=== PATIENT | female | born 1935 ===

== ENCOUNTER → 2018-10-22 | Outpatient (CLI) | payer MEDICARE, OTHER ==
[~2018-10-22] MED LIST: AMLO5 PO; Anastrozole1 GM MC; CYAN1000 PO; MELA3 PO; METO100ER PO; Mobic15 MG PO; OXYC5; RANI150 PO; VITAMIN D32000 UNIT PO
== END | disposition home or self-care (01) ==
LOC: LAB SHORT 07:53 → PLD 07:53
DX: C44.41 Basal cell carcinoma of skin of scalp and neck (principal)
CPT/HCPCS: 88305

== ENCOUNTER → 2018-11-11 | Outpatient (CLI) | payer MEDICARE, OTHER | END | disposition home or self-care (01) | LOC: LAB SHORT 08:40 → PLD 08:40 | DX: C44.41 Basal cell carcinoma of skin of scalp and neck (principal) | CPT/HCPCS: 88305 ==

== ENCOUNTER → 2019-07-01 | Outpatient (CLI) | payer MEDICARE, OTHER | END | disposition home or self-care (01) | LOC: PLD 08:18 → LAB SHORT 08:18 | DX: D48.5 Neoplasm of uncertain behavior of skin (principal) | CPT/HCPCS: 88305 ==

== ENCOUNTER → 2019-07-21 | Outpatient (CLI) | payer MEDICARE, OTHER | END | disposition home or self-care (01) | LOC: PLD 06:55 → LAB SHORT 06:55 | DX: C44.41 Basal cell carcinoma of skin of scalp and neck (principal) | CPT/HCPCS: 88305 ==

== ENCOUNTER → 2020-08-01 | Outpatient (CLI) | payer MEDICARE, OTHER | END | disposition home or self-care (01) | LOC: LAB SHORT 14:23 → LAB 14:23 | DX: L57.0 Actinic keratosis (principal) | CPT/HCPCS: 88305; 88312 ==

== ENCOUNTER → 2022-06-05 | Outpatient (CLI) | payer MEDICARE, OTHER | END | disposition home or self-care (01) | LOC: LAB SHORT 14:42 → LAB 14:42 | DX: L08.0 Pyoderma (principal) | CPT/HCPCS: 87070; 87205 ==

== ENCOUNTER → 2022-08-08 | Outpatient (CLI) | payer MEDICARE, OTHER | END | disposition home or self-care (01) | LOC: PLD 12:52 → LAB SHORT 12:52 | DX: D48.5 Neoplasm of uncertain behavior of skin (principal) | CPT/HCPCS: 88305 ==

== ENCOUNTER 2023-02-10 09:46 | Day surgery (SDC) | payer MEDICARE, OTHER ==
[2023-02-13] MEDS ORDERED: APHEN325 M1 PO (10:59)
[2023-02-13] MEDS ORDERED: EYLEA2 MG/0.02 IO (11:00)
[2023-02-13] MEDS ORDERED: MERIBIN5 MG PO (11:00)
[2023-02-13] MEDS ORDERED: ELIQUIS2.5 MG PO (11:04)
[2023-02-13] MEDS ORDERED: ERGO50000 PO (11:04)
[2023-02-13] MEDS ORDERED: CALCIUM 250-D1 EAC1 PO (11:04)
[2023-02-13] MEDS ORDERED: ARNUITY ELLIP100 MCG INH (11:05)
[2023-02-13] MEDS ORDERED: Flonase 0.05% N16 GM (11:06)
[2023-02-13] MEDS ORDERED: FURO20 PO (11:06)
[2023-02-13] MEDS ORDERED: IRBE150 PO (11:07)
[2023-02-13] MEDS ORDERED: TURMERIC500 M2 PO (11:08)
[2023-02-13] MEDS ORDERED: TIOT18 INH (11:08)
[2023-02-13] MEDS ORDERED: SPIR25 PO (11:08)
[2023-02-13] MEDS ORDERED: Acerola C500 MG PO (11:09)
[2023-02-14] MEDS ORDERED: OMEP20ER PO (09:36)
[2023-02-14] MEDS ORDERED: ARNUITY ELLIP100 MCG IH (09:39)
== END 2023-02-17 22:46 | disposition home or self-care (01) ==
LOC: MOI US 09:46
DX: C50.411 Malignant neoplasm of upper-outer quadrant of right female breast (principal); Z17.1 Estrogen receptor negative status [ER-]
CPT/HCPCS: 19285; 77065; A4648; G0279

== ENCOUNTER 2023-02-27 07:05 | Day surgery (SDC) | payer MEDICARE, OTHER ==
[~2023-02-27] VITALS: Ht 165.1 cm; Wt 65.3 kg
[2023-02-27] VITALS (10 sets, daily range): BP systolic 123–138; BP diastolic 65–85
[~2023-02-27 07:05] MED LIST changes: +APHEN325 M1 PO; +ARNUITY ELLIP100 MCG IH; +ARNUITY ELLIP100 MCG INH; +Acerola C500 MG PO; +CALCIUM 250-D1 EAC1 PO; +ELIQUIS2.5 MG PO; +ERGO50000 PO; +EYLEA2 MG/0.02 IO; +FURO20 PO; +Flonase 0.05% N16 GM; +IRBE150 PO; +MERIBIN5 MG PO; +OMEP20ER PO; +SPIR25 PO; +TIOT18 INH; +TURMERIC500 M2 PO
--- NOTE | 2023-02-27 09:15 | NUR ---
Ambulatory in Day Surgery History, Chart, Medications and Allergies reviewed before start of procedure. Pre-Op teaching done. Pt verbalizes understanding. Patient States Post-Procedure ride home has been arranged.
--- NOTE | 2023-02-27 09:45 | NUR ---
DR KELLY HERE AT BEDSIDE TO TALK WITH PATIENT REGARDING QUESTIONS ON CODE STATUS. PATIENT REQUESTING TO BE A DNR DURING OPERATION. DR KELLY EXPLAINED TO PATIENT AND DAUGHTER THAT IS AT BESIDE OF PATIENT BEING VERY HIGH RISK AND WOULD LIKE TO SUSPENDED HER REQUEST OF CODE STATUS. PATIENT AND DR KELLY AGREED TO GIVE MEDICATIONS DURING SURGERY FOR RESUSCITATION AND NOT DO CHEST COMPRESSIONS. DNR SUSPENSION PAPERWORK SIGNED.
--- NOTE | 2023-02-27 12:57 | NUR ---
PT TO DAY SURGERY FROM PACU. ALERT AND ORIENTED. WOULD LIKE TO USE THE BATHROOM. ABLE TO MOVE SELF IN BED, BUT IS UNSURE ABOUT WALKING. WILL GET BEDSIDE COMMODE. PT IN BLUE BREAST BINDER, RIGHT BREAST HAS GAUZE SECURED AND IS C/D/I.
--- NOTE | 2023-02-27 13:15 | NUR ---
NO CHANGE IN GAUZE ON BREAST
--- NOTE | 2023-02-27 13:30 | NUR ---
PT DAUGHTER SHOWN GAUZE ON BREAST AND HOW TO REMOVED AND PUT BACK ON BREAST
--- NOTE | 2023-02-27 13:30 | NUR ---
PT LEFT LOWER INNER FOREARM BRUISED AND SWOLLEN WHERE ARTERIAL LINE WAS PLACED. SWELLING OUTLINED WITH BODY PEN AND FAMILY EDUCATED ON WATCHING FOR BRUISING AND SWELLING TO EXTEND FROM THE OUTLINE. EDUCATED TO WATCH FOR BLEEDING AND TO KEEP ELEVATED.
--- NOTE | 2023-02-27 13:53 | NUR ---
COBAN REMOVED FROM RIGHT LOWER WRIST AND A 5CM HEMATOMA IS NOTED, AND TRACED. ICE PACK MADE AND PT AND HER DAUGHTER EDUCATED ON HOW TO USE FOR THE NEXT 48 HOURS.
--- NOTE | 2023-02-27 13:58 | NUR ---
SKIN ON BOTH ARMS PREPPED AND TEGADERM PLACED BY CHARGE NURSE OLGA HARPER. DR CALDWELL ON WAY TO SEE PT ARMS.
--- NOTE | 2023-02-27 14:06 | NUR ---
DR OTT CALLED AND UPDATED ON PT 2 AREAS OF BRUISING/SWELLING. DR OTT SAYS FOR PT TO STILL CONTINUE HER ELIQUIS TOMORROW.
--- NOTE | 2023-02-27 14:10 | NUR ---
HENRRY ESPINOZA HOLDING PRESSURE ON RIGHT HEMATOMA FOR 5 MINUTES, PER DR PAULETTE PRIDE. EDUCATED FAMILY ON HOW TO APPLY PRESSURE PRN.
--- NOTE | 2023-02-27 14:17 | NUR ---
DR RAMAN UPDATED ON RIGHT ARM, AFTER 10 MINUTES OF MANUAL PRESSURE BY HENRRY ESPINOZA, HEMATOMA IS FLATTENED. DR CALDWELL NOT COMING IN TO SEE PT. PT CLEARED TO DISCHARGE TO HOME. PT TO DISCHARGE HOME VIA WHEELCHAIR WITH DAUGHTER. DISCHARGE INSTRUCTIONS IN HAND AND PT AND DAUGHTER STATE AN UNDERSTANDING.
--- NOTE | 2023-02-27 18:19 | NUR ---
LATE ENTRY: ARTERIAL LINE RIGHT RADIAL ARTERY PLACED IN OR BY ACP. DC IN PACU @[id number]. SITE AND SKIN CLEANED WITH ALCOHOL BEFORE REMOVAL. STERILE 4X4S USED TO HOLD PRESSURE AND DRESS SITE. PRESSURE MAINTAINED AND SITE COVERED WITH PRESSURE DRESSING AND COBAN. CATH INTACT AND SITE WAS WNL.
== END 2023-02-27 14:20 | disposition home or self-care (01) ==
LOC: NM 07:05 → ORSCMMR 07:06 → NM 07:30
PROVIDERS: Surgery
PROC: 0HBT0ZZ Excision of Right Breast, Open Approach (ICD-10-PCS; principal; 2023-02-27 09:00)
PROC: 07B50ZZ Excision of Right Axillary Lymphatic, Open Approach (ICD-10-PCS; principal; 2023-02-27 09:00)
DX: C50.411 Malignant neoplasm of upper-outer quadrant of right female breast (principal); Z17.1 Estrogen receptor negative status [ER-]; Z85.3 Personal history of malignant neoplasm of breast; I35.0 Nonrheumatic aortic (valve) stenosis
CPT/HCPCS: 38792; 76098; A9270; A9520; J0690; J1100; J2371; J2405; J2704; J3010; J7120; Q9968